=== PATIENT | female | born 1955 | race Caucasian/White ===

== ENCOUNTER 2018-03-03 08:18 | Observation (INO) ==
--- NOTE | 2018-03-03 08:32 | Emergency Department Note ---
Disposition Clinical Impression: Left leg weakness Disposition: Admitted As Inpatient Condition: Good General Adult HPI - General Chief complaint: ED Neuro Symptoms/Deficit Stated complaint: dizziness, LLE numbness Time Seen by Provider: 03/03/18 08:24 - History of Present Illness Pain Scale: 0 - Related Data Home Medications Medication Instructions Recorded Confirmed No Known Home Drugs 08/09/17 03/03/18 Allergies Allergy/AdvReac Type Severity Reaction Status Date / Time No Known Allergies Allergy Verified 03/03/18 09:28 Past Medical History - Social History Smoking Status: Former smoker Smokeless Tobacco Status: No Alcohol use: Reports: none Drug use: Reports: none Course Vital Signs Temperature 98 F 03/03/18 08:21 Pulse Rate 63 03/03/18 08:21 Respiratory Rate 16 03/03/18 08:21 Blood Pressure 157/90 03/03/18 08:21 O2 Sat by Pulse Oximetry 100 03/03/18 08:21 Temperature 97.9 F 03/03/18 10:29 Pulse Rate 58 03/03/18 10:29 Respiratory Rate 17 03/03/18 10:29 Blood Pressure 136/77 03/03/18 10:29 O2 Sat by Pulse Oximetry 98 03/03/18 10:29 Oxygen Delivery Oxygen Delivery Room Air Medical Decision Making - Lab Data Result diagrams: 03/03/18 08:29 03/03/18 08:29 Lab Results 03/03/18 03/03/18 03/03/18 Range/Units 08:29 08:29 08:29 WBC 6.9 (4.3-11.1) K/mcL RBC 4.53 (3.82-4.97) M/mcL Hgb 14.4 (11.5-15.4) g/dL Hct 43.8 (35.3-44.9) % MCV 96.7 (83.0-100.0) fL MCH 31.8 (28.0-33.3) pg MCHC 32.9 (31.6-35.5) g/dL RDW 13.2 (11.5-14.5) % Plt Count 259 (140-400) K/mcL MPV 8.8 L (9.4-12.4) fL Immature Gran % 0.3 (0-4) % Seg Neutrophils % 73.1 % Lymphocytes % 16.5 % Monocytes % 7.9 % Eosinophils % 1.2 % Basophils % 1.0 % Neutrophils # 5.1 (1.6-8.9) K/mcL Lymphocytes # 1.1 (0.6-4.6) K/mcL Monocytes # 0.6 (0.0-1.3) K/mcL Eosinophils # 0.1 (0.0-0.6) K/mcL Basophils # 0.1 (0.0-0.2) K/mcL PT 11.5 (9.4-12.1) Seconds INR 1.0 APTT 29.5 (26.0-36.0) Seconds Sodium 140 (136-145) mEq/L Potassium 3.5 (3.5-5.1) mEq/L Chloride 107 (98-107) mEq/L Carbon Dioxide 25 (23-29) mEq/L BUN 16 (8-23) mg/dL Creatinine 0.82 (0.60-1.20) mg/dL Est GFR ( Amer) > 60 (> 60) Est GFR (Non-Af Amer) > 60 (> 60) BUN/Creatinine Ratio 20 (6-26) Glucose 90 (70-105) mg/dL Calculated Osmolality 291 (280-300) Calcium 9.2 (8.6-10.3) mg/dL Troponin I < 0.03 (< 0.04) ng/mL Critical Care Time Critical Care Time: Yes Total Critical Care Time: 30 Attestation: The high probability of a clinically significant, sudden or life threatening deterioration of the [] system(s) required my full and direct attention, intervention and personal management. The aggregate critical care time was [] minutes. This time is in addition to time spent performing reported procedures but includes the following: [] Data Review and interpretation [] Patient assessment and monitoring of vital signs [] Documentation [] Medication orders and management Attestation Statement - Attestation Attestation: I examined this patient and my medical decision-making was reviewed with the Resident Physician. I agree with the documented findings, disposition and treatment plan as described except to the extent set forth below. [id number] time provided Patient arrives by private vehicle complaining of the abrupt onset of left lower extremity numbness, tingling, and heaviness with difficulty ambulating that started 2 hours and 30 minutes prior to arrival. She also feels dizzy. She denies speech or vision changes. No other focal weakness. She has a history of endometrial cancer with brain metastases and she underwent 10 rounds of chemotherapy one year ago. She states she recently had an MRI with improvement. She had similar symptoms previously related to brain lesions. The patient is alert and lucid and pleasant and in no apparent distress upon arrival. Stroke alert activated 09:10: CT head reported negative. NIH 1-2 for sensory and motor deficits LLE. Stroke alert consultation pursued
[2018-03-03 09:03] LABS: Basophils # 0.1 K/mcL (0.0-0.2); Eosinophils # 0.1 K/mcL (0.0-0.6); Eosinophils % 1.2 %; Hematocrit 43.8 % (35.3-44.9); Hemoglobin 14.4 g/dL (11.5-15.4); Immature Granulocytes % 0.3 % (0-4); Lymphocytes # 1.1 K/mcL (0.6-4.6); Lymphocytes % 16.5 %; Mean Corpuscular HGB Conc 32.9 g/dL (31.6-35.5); Mean Corpuscular Hemoglobin 31.8 pg (28.0-33.3); Mean Corpuscular Volume 96.7 fL (83.0-100.0); Mean Platelet Volume 8.8 fL (9.4-12.4); Monocytes # 0.6 K/mcL (0.0-1.3); Monocytes % 7.9 %; Neutrophils # 5.1 K/mcL (1.6-8.9); Platelet Count 259 K/mcL (140-400); Red Blood Count 4.53 M/mcL (3.82-4.97); Red Cell Distribution Width 13.2 % (11.5-14.5); Segmented Neutrophils % 73.1 %
--- NOTE | 2018-03-03 09:03 | Emergency Department Note ---
Disposition Clinical Impression: Left leg weakness Disposition: Admitted As Inpatient Condition: Good Forms: ED Satisfaction Letter Time of Disposition: 09:53 Neuro HPI - General Chief Complaint: ED Neuro Symptoms/Deficit Stated Complaint: dizziness, LLE numbness Time Seen by Provider: 03/03/18 08:24 Source: patient Mode of arrival: ambulatory Limitations: no limitations Nursing Notes Reviewed: Yes Vital Signs Reviewed: Yes - History of Present Illness HPI Narrative: 62-year-old female presents to the emergency department with left leg weakness. Patient states her last known normal was at 6:00 this morning. Patient does have history of brain lesions had an MRI done approximately 2-3 months ago which did not show any brain lesions. She did have and a endometrial cancer that metastasized into the brain she did undergo chemotherapy as well as radiation approximately 1-2 years ago. Patient is not having any other complaint this time. Just had the sudden onset of left lower leg weakness. Patient states this feels like the exact same thing that happened when they found out she had the 6 lesions in the brain. Patient does not have any pain at this time. - Related Data Home Medications: Home Medications Medication Instructions Recorded Confirmed No Known Home Drugs 08/09/17 11/21/17 Allergies/Adverse Reactions: Allergies Allergy/AdvReac Type Severity Reaction Status Date / Time No Known Allergies Allergy Verified 03/03/18 09:28 All systems ED: reviewed and negative except as stated. Review of Systems: As Per HPI Constitutional: Reports: as per HPI. Denies: fever, chills, weakness Eyes: Denies: eye pain, eye discharge, vision change ENT ED: Denies: ear pain, throat pain, dental pain, hearing loss, epistaxis, congestion, dysphagia Cardiovascular: Denies: chest pain, palpitations, dyspnea on exertion, edema, syncope Respiratory: Denies: cough, dyspnea, wheezes, hemoptysis, stridor Gastrointestinal: Denies: abdominal pain, nausea, vomiting, diarrhea, constipation, hematemesis, melena, hematochezia Genitourinary: Denies: dysuria, frequency, hematuria, discharge Musculoskeletal: Denies: back pain, neck pain, arthralgia, myalgia Integumentary: Denies: rash, abrasion, lesions Neurological: Reports: weakness. Denies: headache, numbness, paresthesias, confusion, abnormal gait, vertigo Psychiatric: Denies: anxiety, depression, suicidal thoughts, homicidal thoughts , auditory hallucinations, visual hallucinations Endocrine: Denies: fatigue Hematological/Lymphatic: Denies: easy bleeding, easy bruising Allergic/Immunologic: Denies: facial swelling, urticaria Past Medical History - Past Medical History Attestation: Yes The following information was validated with the patient. Source: patient Medical history: Reports: cancer - Social History Smoking Status: Former smoker Smokeless Tobacco Status: No Alcohol use: Reports: none Drug use: Reports: none Physical Exam - General Limitations: no limitations General appearance: alert - Head Head exam: atraumatic, normocephalic, normal inspection - Eye Eye exam: Present: normal appearance, PERRL, EOMI - ENT ENT exam: normal exam, normal oropharynx, mucous membranes moist - Neck Neck exam: Present: normal inspection, full ROM, trachea midline - Chest Chest inspection: Present: normal inspection, symmetric chest wall rise - Respiratory Respiratory exam: Present: normal lung sounds bilaterally - Cardiovascular Cardiovascular exam: Present: regular rate, normal rhythm, normal heart sounds - Abdominal Exam Abdominal exam: Present: soft, Non-Tender, normal bowel sounds. Absent: tenderness, distention, guarding, rebound, rigidity - Extremities Exam Extremities exam: Present: normal inspection, full ROM. Absent: tenderness, pedal edema - Back Exam Back exam: Present: normal inspection, full ROM. Absent: tenderness - Neurological Exam Neurological exam: Present: alert, oriented X3 - Expanded Neurological Exam Patient oriented to: Present: person, place, time Speech: Present: fluid speech Cranial nerves: EOM function (II, III, IV, ): Normal, facial sensation (V): Normal, facial palsy (VII): Normal, spinal accessory function (XI): Normal, tongue deviation (XII): Normal Cerebellar function: finger to nose: Normal, heel to peng: Normal Cerebellar function: normal gait Motor strength - LUE: 5/5 Motor strength - RUE: 5/5 Motor strength - LLE: 5/5 Motor strength - RLE: 5/5 Upper motor neuron exam: suad neglect: Absent bilaterally, pronator drift: Absent bilaterally Sensory exam upper extremity: light touch: Normal Sensory exam lower extremity: light touch: Normal Coma Scale Eye Opening: Spontaneous Coma Scale Motor Response: Obeys Commands Coma Scale Verbal Response: Oriented Coma Scale Total: 15 - Skin Skin exam: Present: warm, dry, intact, normal color Course Course Narrative: Stroke alert was called once patient came to the emergency department was having left leg weakness. We will do stat head CT. We will do normal workup including CBC, BMP , coags and await recommendations from [facility] neurology - Consultations Consultation #1: Spoke with the hospital's Dr. Baugh who agreed to admit the patient to their service. Patient admitted in stable condition Vital Signs Temperature 98 F 03/03/18 08:21 Pulse Rate 63 03/03/18 08:21 Respiratory Rate 16 03/03/18 08:21 Blood Pressure 157/90 03/03/18 08:21 O2 Sat by Pulse Oximetry 100 03/03/18 08:21 Temperature 98 F 03/03/18 08:30 Pulse Rate 64 03/03/18 09:04 Respiratory Rate 18 03/03/18 09:04 Blood Pressure 143/85 03/03/18 09:04 O2 Sat by Pulse Oximetry 100 03/03/18 09:04 Oxygen Delivery Oxygen Delivery Room Air Neuro Symptoms/Deficit - MDM Narrative Medical decision making narrative: 82-year-old female here with left leg weakness. Last known well was 6:00. Stroke alert was called. Patient had an NIH 1. At that time we sent patient to stat CT radiologist called back and said that there was no acute brain bleeding but he did look at the old MRI from one month ago and did notice the patient had 2 small brain lesions. He said there were not as profound as when she recently was diagnosed with brain cancer. [facility] neurology did get on the video and examined the patient did not recommend TPA as they said this probably secondary to patient's brain lesions. Due to this we will admit the patient for repeat MRI. Patient wants to stay here as her neurologist as well as oncologist are here. Patient is stable at this time. EKG had no acute findings. Patient be admitted in stable condition. - Medical Records Medical records reviewed: Yes I reviewed the patient's medical records. - Lab Data Lab results reviewed: Yes I reviewed the patient's lab results. Result diagrams: 03/03/18 08:29 03/03/18 08:29 Lab Results 03/03/18 03/03/18 03/03/18 Range/Units 08:29 08:29 08:29 WBC 6.9 (4.3-11.1) K/mcL RBC 4.53 (3.82-4.97) M/mcL Hgb 14.4 (11.5-15.4) g/dL Hct 43.8 (35.3-44.9) % MCV 96.7 (83.0-100.0) fL MCH 31.8 (28.0-33.3) pg MCHC 32.9 (31.6-35.5) g/dL RDW 13.2 (11.5-14.5) % Plt Count 259 (140-400) K/mcL MPV 8.8 L (9.4-12.4) fL Immature Gran % 0.3 (0-4) % Seg Neutrophils % 73.1 % Lymphocytes % 16.5 % Monocytes % 7.9 % Eosinophils % 1.2 % Basophils % 1.0 % Neutrophils # 5.1 (1.6-8.9) K/mcL Lymphocytes # 1.1 (0.6-4.6) K/mcL Monocytes # 0.6 (0.0-1.3) K/mcL Eosinophils # 0.1 (0.0-0.6) K/mcL Basophils # 0.1 (0.0-0.2) K/mcL PT 11.5 (9.4-12.1) Seconds INR 1.0 APTT 29.5 (26.0-36.0) Seconds Sodium 140 (136-145) mEq/L Potassium 3.5 (3.5-5.1) mEq/L Chloride 107 (98-107) mEq/L Carbon Dioxide 25 (23-29) mEq/L BUN 16 (8-23) mg/dL Creatinine 0.82 (0.60-1.20) mg/dL Est GFR ( Amer) > 60 (> 60) Est GFR (Non-Af Amer) > 60 (> 60) BUN/Creatinine Ratio 20 (6-26) Glucose 90 (70-105) mg/dL Calculated Osmolality 291 (280-300) Calcium 9.2 (8.6-10.3) mg/dL Troponin I < 0.03 (< 0.04) ng/mL - Radiology Data Radiology results reviewed: Yes I reviewed the patient's radiology results. - EKG Data EKG attestation: Yes I reviewed and interpreted this EKG. EKG results narrative: EKG done at 0850 review myself and the attending shows sinus rhythm at a rate of 60, AR interval 148, QRS 104, QTc 441. There is no acute ST changes no acute T-wave changes no signs of ischemia. No signs of heart block, hypertrophy , heart strain. No WPW/Brugada/HOCM. There is no old EKG to compare with. NIH Stroke Scale - Level of Consciousness LOC: Alert - LOC Questions LOC Questions: Answers both correctly - LOC Commands LOC Commands: Performs both correctly - Best Gaze Best Gaze: Normal - Visual Visual: No visual loss - Facial Palsy Facial Palsy: Normal - Motor Arms Motor Arm-Left: No drift for 10 seconds Motor Arm-Right: No drift for 10 seconds - Motor Legs Motor Leg-Left: Drift, does NOT hit bed Motor Leg-Right: No drift for 5 seconds - Limb Ataxia Limb Ataxia: Absent of affected limb too weak to perform exam - Sensory Sensory: Normal - Best Language Best Language: No aphasia - Dysarthria Dysarthria: Normal - Extinction and Inattention Extinction and Inattention: Normal - NIHSS Total Score NIHSS Total Score: 1 TPA Checklist - LKW: 3-4.5 hrs Add. Warnings/Precautions Patient/family understanding: The patient/family members have been counseled and understood the risk, benefit , and alternatives of treatment.
[2018-03-03 09:09] LABS: Prothrombin Time 11.5 Seconds (9.4-12.1)
[2018-03-03 09:11] LABS: Activated Partial Thrombo Time 29.5 Seconds (26.0-36.0)
[2018-03-03 09:25] LABS: BUN/Creatinine Ratio 20 (6-26); Blood Urea Nitrogen 16 mg/dL (8-23); Calcium 9.2 mg/dL (8.6-10.3); Carbon Dioxide 25 mEq/L (23-29); Chloride 107 mEq/L (98-107); Glucose 90 mg/dL (70-105); Osmolality,Calculated 291 (280-300); Potassium 3.5 mEq/L (3.5-5.1); Sodium 140 mEq/L (136-145); Troponin I < 0.03 ng/mL (< 0.04); eGFR For Non-African Americans > 60 (> 60)
[2018-03-03] MEDS ORDERED: Naloxone 0.4 MG/ML INJ IVP PRN (10:10)
[2018-03-03] MEDS ORDERED: Gadolinium Contrast Agent (WT Based) IV PRN (11:06)
[2018-03-03] MEDS: 0.9 % Sodium Chloride 1,000 ML IVC SCH (12:11)
--- NOTE | 2018-03-03 12:36 | Internal Med History&Physical ---
Date of Encounter: 03/03/18 Time of Encounter: 12:16 Internal Medicine - H&P: HPI Chief complaint: Enters from home to ED with CC of left leg heaviness, weakness , and throb Admitted From: Home Plans for Post Hospital Care: Home History of present illness: Ms. Chirinos is a 62 year old female she was seen in ED for an abrupt onset neurological deficient with weakness of left lower extremity, and dizziness. Associated s/s of difficulty ambulating, for 2 hours prior to being seen in ED. At that time she denied any other neurological symptoms. She reports that she has expierenced similar s/s when she was diagnosed with Endometrial cancer with METS to the brain 2017 HX of Endometrial cancer with mets to the lung, and brain. Positive hx of right upper lobectomy d/t endometrial cancer METS. She completed 10 rounds of Chemotherapy one year ago. States she has completed all of her treatments at this time. Takes no home medications. Hx of Primary colon cancer with bowel resection as her primary treatment for the cancer. Reports this was diagnosised in 2016. Reports strong familiar hx of both endometrial cancer, brain cancer and colon cancer all from her Maternal side of the family. Reports that she had 5 sisters whom have of some sort of cancer in the past 1 year. States her mother pased from endometrial and brain cancer . CT of head completed in ED shows "no acute intracranial hemorrhage, mass effect or midline shift. No abnormal extra-axial fluid collection. The talbert-white differentiation is maintained without evidence of an acute infarct. There is prominence of the ventricles and sulci due to global parenchymal volume loss. There are nonspecific areas of hypoattenuation within the periventricular and subcortical white matter, which likely represent chronic microvascular ischemic change.Recommends further work up with MRI. " Today Ms. Chirinos continues to c/o left leg weakness, with worsening with ambulation. Reports that she can feel "her heart beat in it", with associated heaviness. Reports when she stands in a clear area, she has feelings of 'Off balance" and a need "to hold on". Reports that she feels more safe in a room where there is furniture to hold on to. Spoke with Dr. Vallecillo Oncologist whom wishes to start on Decadron 4 mg po q6h prn . Consults with Dr. Gomez Neurology has been completed. MRI of brain, 2 D echo , and Carotid Doppler have been ordered and pending at this time . Past Med Surg Social Fam HX - Past Medical History Source: patient Medical history: cancer Additional medical history: Endometrial, colon, brain, lung cancer Psychiatric history: no psych history - Past Surgical History Surgical History: appendectomy, hysterectomy Additional surgical history: Tonsilectomy. 2/3 small and large instestines removed due to cancer. Right upper lobectomy - Social History Smoking Status: Former smoker Smokeless Tobacco Status: No Alcohol use: none Drug use: none - Family History Grandmother Living Status: Age at : 80 Cause of : Cancer Hx Family Cancer: Yes (Ovarian, Colon, Mets) Mother Living Status: Age at : 51 Cause of : Cancer Hx Family Cancer: Yes Internal Medicine - H&P: Meds No Known Home Drugs 08/09/17 [History] 3 Allergy/AdvReac Type Severity Reaction Status Date / Time No Known Allergies Allergy Verified 03/03/18 09:28 All Systems PM: A 10-system review of systems was performed and is negative for pertinent findings except as documented above in the HPI. - Constitutional Constitutional: no chills, no fever(s), no night sweats - EENT Eyes: no change in vision, no discharge, no pain, no photophobia Ears: no ear discharge, no ear pain, no tinnitus Nose, mouth and throat: no dysphagia, no nasal discharge, no neck pain, no sore throat - Cardiovascular Cardiovascular ROS IM: no chest pain, no diaphoresis, no dyspnea, no lightheadedness, no palpitations, no syncope - Respiratory Respiratory: no cough, no dyspnea, no wheezing, no excessive phlegm production - Gastrointestinal Gastrointestinal: no abdominal pain, no diarrhea, no hematemesis, no hematochezia, no melena, no nausea, no vomiting - Genitourinary Genitourinary: no change in urinary stream, no dysuria, no flank pain, no hematuria - Musculoskeletal Musculoskeletal ROS IM: muscle weakness Additional comments: left lower extremity - Integumentary Integumentary IM: no rash, no unusual bruising - Neurological Neurological ROS: dizziness, focal weakness, weakness Additional comments: left lower leg weakness, throbbing sensation, sensation of heaviness - Constitutional Vitals: Temp Pulse Resp BP Pulse Ox 97.9 F 58 17 136/77 98 03/03/18 10:29 09/03/18 10:29 03/03/18 10:29 03/03/18 10:29 03/03/18 10:29 General appearance: Present: A&O X 3, pleasant, answers questions appropriately Exam: Patient is resting comfortably in bed accompanied by her in no acute distress. Denies chest pain, headache, palpations, shortness of breath. Continues with CC of heaviness and "throbbing " of left lower extremity - Head Head exam: Present: atraumatic, normal inspection - Eye Eye exam: Present: EOMI, PERRL, conjuntiva pink, sclera anicteric Pupils: Present: PERRL - ENT ENT exam: Present: mucous membranes moist, normal exam - Neck Neck exam general surgery: Present: supple, trachea midline. Absent: lymphadenopathy - Respiratory Respiratory exam: Present: CTAB Additional comments: no breath sounds right upper lobe d/t lobectomy . Well healed scar right posterior scapula. - Cardiovascular Cardiovascular exam: Present: RRR, +S1, +S2. Absent: diastolic murmur, gallop, rubs, systolic murmur - GI/Abdominal GI/Abdominal exam: Present: normal bowel sounds, soft, no peritoneal signs. Absent: distended, tenderness - Extremities Exam Extremities exam: Present: full ROM, normal capillary refill, normal inspection , radial pulses palpable and symmetrical - Back Exam Back exam: Present: full ROM - Neurological Exam Neurological exam: Present: alert, CN II-XII intact, normal gait, oriented X3, reflexes normal, no focal deficits, strengths equal and symetr throughout - Skin Additional comments: discoloration of left lower extremity when compared to right. Tanning of the right lower extremity. Internal Med - H&P Results - Labs CBC & Chem 7: 03/03/18 08:29 03/03/18 08:29 - Time Spent With Patient Total time spent is greater than 50% in coordination of care (as documented) at patient's floor/unit and/or counseling patient:
--- NOTE | 2018-03-03 15:41 | Neurology - Consult Note ---
Date of Encounter: 03/03/18 Time of Encounter: 15:37 Assessment and Plan (1) Left leg weakness Current Visit: Yes Status: Acute At this time show his neurologic examination is completely normal. She does have some subjective feeling of heaviness of the left leg. Given that the more recent MRI scan of the brain completed on 01/30/2018 revealed no evidence of new metastatic lesions, I am doubtful that we are dealing with such. However we will go ahead and obtain an MRI scan of the brain with diffusion images to rule out evidence of cerebrovascular disease. However there is diffuse white matter change consistent with what is consistent with having received whole brain radiation therapy previously. I will also obtain carotid Doppler study and echocardiogram. History of Present Illness HPI: The chart was reviewed, the patient was seen and examined. Ms. Chirinos is a 62 year old female seen at the request of the hospitalist secondary to left leg paresthesias and "heaviness". 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 She states that about a year or so ago she developed similar symptoms in the left leg. It was then further workup found that she had metastatic lesions to the brain. Ultimately she did have 10 treatments of whole brain radiation therapy. She is also had chemotherapy. . Today she felt that her left leg was tingling numb and heavy. The numbness has improved however heaviness is still present. She denies any pain of the left leg or back. She denies any involvement of the left arm or left face. She denies any history of hypertension, diabetes mellitus or hyperlipidemia. I did review the previous MRI scan of the brain which was completed on 01/30/2018 , it shows were several of the previously existing metastatic lesions were no longer there. Past Med Surg Social Fam HX - Past Medical History Medical history: cancer Additional medical history: Endometrial, colon, brain, lung cancer Psychiatric history: no psych history - Past Surgical History Surgical History: appendectomy, hysterectomy Additional surgical history: Tonsilectomy. 2/3 small and large instestines removed due to cancer. Right upper lobectomy - Social History Smoking Status: Former smoker Smokeless Tobacco Status: No Alcohol use: none Drug use: none - Family History Grandmother Living Status: Age at : 80 Cause of : Cancer Hx Family Cancer: Yes (Ovarian, Colon, Mets) Mother Living Status: Age at : 51 Cause of : Cancer Hx Family Cancer: Yes Medications and Allergies No Known Home Drugs 08/09/17 [History] 3 Allergy/AdvReac Type Severity Reaction Status Date / Time No Known Allergies Allergy Verified 03/03/18 09:28 All Systems: The remainder of the systems were reviewed and are negative Review of Systems: The balance of the systems review is negative. Physical Examination - Vital Signs Vital Signs: Initial Vital Signs Temp Pulse Resp BP Pulse Ox 98 F 63 16 157/90 100 03/03/18 08:21 03/03/18 08:21 03/03/18 08:21 03/03/18 08:21 03/03/18 08:21 - Neurologic Detailed motor examination: full strength in all major muscle groups Motor examination - right side: 5/5: deltoids, biceps, triceps, wrist flexion, wrist extension, rail filler, hip flexors, tibialis Anterior, quadriceps, toe extension (EHL), plantarflexion Motor examination - left side: 5/5: deltoids, biceps, triceps, wrist flexion, wrist extension, hip flexors, rail filler, quadriceps, tibialis Anterior, toe extension (EHL), plantarflexion Detailed sensory examination: intact Reflex and gait examination: intact (Deep tendon reflexes are 2/4 symmetrically of the upper and lower extremities.) Mental Status Examination: awake, alert, oriented to person, oriented to place, oriented to time, follows commands appropriately, answers questions appropriately, no agnosia, no aphasia, no aproxia Cranial nerve examination: PERRL, EOMI, visual carmona intact, corneal reflexes brisk symmetrically, sensory to face intact, mastication intact, no facial asymmetry is present, no dysarthria, hearing is intact symmetrically, soft palate elevates bilaterally upon phonation, gag reflex intact, flexes SCM and trapezius muscles symmetrically with full power, tongue protrudes midline, no atrophy or facial fasiculations present Cerebellar examination: no dysmetria, performs finger to nose and heel to peng symmetrically without ataxia, no gait ataxia, no truncal ataxia, no difficulty with rapid alternating movements Results - Laboratory Findings CBC and BMP: 03/03/18 08:29 03/03/18 08:29 Abnormal lab findings: Abnormal lab results MPV 8.8 fL (9.4-12.4) L 03/03/18 08:29 Consult Discharge Plan - Plan Referrals: NONE,PCP [Primary Care Provider] -
[2018-03-03] MEDS: Aspirin 81 MG TAB.CHEW PO SCH (18:46)
[2018-03-04] MEDS: 0.9 % Sodium Chloride 1,000 ML IVC SCH ×2 (00:47→21:15)
[2018-03-04 05:36] LABS: Basophils # 0.1 K/mcL (0.0-0.2); Basophils % 1.2 %; Eosinophils # 0.1 K/mcL (0.0-0.6); Eosinophils % 2.7 %; Hematocrit 37.1 % (35.3-44.9); Immature Granulocytes % 0.2 % (0-4); Lymphocytes # 1.1 K/mcL (0.6-4.6); Lymphocytes % 26.3 %; Mean Corpuscular HGB Conc 32.9 g/dL (31.6-35.5); Mean Corpuscular Hemoglobin 31.6 pg (28.0-33.3); Mean Corpuscular Volume 96.1 fL (83.0-100.0); Mean Platelet Volume 8.8 fL (9.4-12.4); Monocytes # 0.5 K/mcL (0.0-1.3); Neutrophils # 2.3 K/mcL (1.6-8.9); Platelet Count 218 K/mcL (140-400); Red Blood Count 3.86 M/mcL (3.82-4.97); Red Cell Distribution Width 13.2 % (11.5-14.5); Segmented Neutrophils % 56.6 %
[2018-03-04 05:37] LABS: Hemoglobin 12.2 g/dL (11.5-15.4)
[2018-03-04 05:57] LABS: Alanine Aminotransferase 10 Units/L (7-52); Albumin 3.4 g/dL (3.5-5.7); Albumin/Globulin Ratio 1.8 (1.1-2.2); Alkaline Phosphatase 57 Units/L (34-104); Aspartate Amino Transferase 12 Units/L (13-39); BUN/Creatinine Ratio 23 (6-26); Bilirubin,Total 0.5 mg/dL (0.3-1.0); Blood Urea Nitrogen 16 mg/dL (8-23); Calcium 8.5 mg/dL (8.6-10.3); Carbon Dioxide 24 mEq/L (23-29); Chloride 111 mEq/L (98-107); Globulin 1.9 g/dL (2.4-3.5); Glucose 88 mg/dL (70-105); Osmolality,Calculated 295 (280-300); Potassium 3.5 mEq/L (3.5-5.1); Sodium 142 mEq/L (136-145); Total Protein 5.3 g/dL (6.4-8.9); eGFR For Non-African Americans > 60 (> 60)
[2018-03-04] MEDS: Aspirin 81 MG TAB.CHEW PO SCH (08:52)
--- NOTE | 2018-03-04 14:55 | Oncology Inp Consult Note ---
<Sterling Reyes - Last Filed: 03/04/18 18:19> Date of Encounter: 03/04/18 Time of Encounter: 14:54 Assessment and Plan (1) Left leg weakness Status: Acute Assessment and plan: Patient has waxing and waning weakness and heaviness in her left leg of uncertain etiology. Doubtful that the small lesion noted on MRI is causing her symptoms. Symptoms can also be related to neuropathy as a late effect of her chemoradiation. We will have her follow-up as an outpatient with her medical oncologist and radiation oncologist. She is stable for discharge from an oncologic standpoint. We will sign off, please call with any questions. (2) Endometrial cancer Status: Acute - Data of Consult Patient: known to practice within the last 3 years Consult date: 03/04/18 Requesting Physician: Louise Bray MD Primary Care Provider: PCP NONE - Consult Narrative Reason for consult: L leg weakness History of present illness: Ms. Chirinos is a 62 year old female with history of endometrial cancer with metastatic disease to the brain who presents with left leg weakness. Patient states her symptoms began yesterday morning when she woke up and attempted to walk and had heaviness in her left leg as well as numbness and tingling. She denies any pain with this event. She states this was similar to the feeling she had several years ago when she was diagnosed with brain metastasis. She states that recently she has been doing a lot of motorcycle riding and has been wearing a lymphedema compression stocking on her left leg that she feels is too small for her and extremely tight. At the time of exam the patient reports that her symptoms have nearly resolved completely. She does report that her leg feels somewhat heavy but otherwise her symptoms resolved. She denies any upper extremity weakness, numbness, tingling, facial numbness, tingling, slurred speech, vision changes, headache, syncopal episode. Past Med Surg Social Fam HX - Past Medical History Medical history: cancer Additional medical history: Endometrial, colon, brain, lung cancer Psychiatric history: no psych history - Past Surgical History Surgical History: appendectomy, hysterectomy Additional surgical history: Tonsilectomy. 2/3 small and large instestines removed due to cancer. Right upper lobectomy - Social History Smoking Status: Former smoker Smokeless Tobacco Status: No Alcohol use: none Drug use: none - Family History Grandmother Living Status: Age at : 80 Cause of : Cancer Hx Family Cancer: Yes (Ovarian, Colon, Mets) Mother Living Status: Age at : 51 Cause of : Cancer Hx Family Cancer: Yes Medications and Allergies No Known Home Drugs 08/09/17 [History] 3 Allergy/AdvReac Type Severity Reaction Status Date / Time No Known Allergies Allergy Verified 03/03/18 09:28 Constitutional: Absent: chills, fever(s) Nose, mouth and throat: Absent: headache(s), sore throat Cardiovascular: Present: edema. Absent: chest pain Respiratory: Absent: cough, dyspnea Gastrointestinal: Absent: diarrhea, nausea, vomiting Genitourinary: Absent: dysuria, hematuria Musculoskeletal: Present: muscle weakness, numbness, tingling Integumentary: Absent: new lesions Neurological: Present: focal weakness, numbness, tingling. Absent: confusion, dizziness, headache(s), syncope Hematologic/Lymphatic: Absent: easy bleeding, easy bruising Oncology - Exam - Constitutional Vitals: Temp Pulse Resp BP Pulse Ox 98.9 F 87 16 118/74 98 03/04/18 11:46 03/04/18 11:46 03/04/18 11:46 03/04/18 11:46 03/04/18 11:46 General appearance: cooperative, no acute distress - Head Head exam: Present: atraumatic, normal inspection, normocephalic - Eye Eye exam: Present: EOMI, PERRL, sclera anicteric - ENT ENT exam: Present: mucous membranes moist - Respiratory Respiratory exam: Present: CTAB. Absent: rales, rhonchi, wheezes - Cardiovascular Cardiovascular exam: Present: RRR. Absent: diastolic murmur, gallop, systolic murmur - GI/Abdominal GI/Abdominal exam: Present: normal bowel sounds, soft. Absent: tenderness - Extremities Exam Extremities exam: Absent: calf tenderness, pedal edema - Neurological Exam Neurological exam: Present: alert, CN II-XII intact, oriented X3, no focal deficits, strengths equal and symetr throughout. Absent: motor sensory deficit , pronater drift, facial droop, speech deficit - Skin Skin exam: Present: dry, intact, warm Oncology - Results Labs: 3 03/04/18 03/04/18 05:19 05:19 WBC 4.1 L RBC 3.86 Hgb 12.2 D Hct 37.1 MCV 96.1 MCH 31.6 MCHC 32.9 RDW 13.2 Plt Count 218 MPV 8.8 L Immature Gran % 0.2 Seg Neutrophils % 56.6 Lymphocytes % 26.3 Monocytes % 13.0 Eosinophils % 2.7 Basophils % 1.2 Neutrophils # 2.3 Lymphocytes # 1.1 Monocytes # 0.5 Eosinophils # 0.1 Basophils # 0.1 Sodium 142 Potassium 3.5 Chloride 111 H Carbon Dioxide 24 BUN 16 Creatinine 0.70 Est GFR ( Amer) > 60 Est GFR (Non-Af Amer) > 60 BUN/Creatinine Ratio 23 Glucose 88 Calculated Osmolality 295 Calcium 8.5 L Total Bilirubin 0.5 AST 12 L ALT 10 Alkaline Phosphatase 57 Serum Total Protein 5.3 L Albumin 3.4 L Globulin 1.9 L Albumin/Globulin Ratio 1.8 Consult Discharge Plan - Plan Referrals: NONE,PCP [Primary Care Provider] - <Robert Vallecillo - Last Filed: 03/04/18 22:41> Date of Encounter: 03/04/18 - Data of Consult Requesting Physician: Louise Bray MD Primary Care Provider: PCP NONE - Consult Narrative History of present illness: Ms. Chirinos is a 62 year old female Oncology - Exam - Constitutional Vitals: Temp Pulse Resp BP Pulse Ox 98.6 F 64 16 133/78 100 03/04/18 19:18 03/04/18 19:18 03/04/18 19:18 03/04/18 19:18 03/04/18 19:18 Oncology - Results Labs: 3 03/04/18 03/04/18 05:19 05:19 WBC 4.1 L RBC 3.86 Hgb 12.2 D Hct 37.1 MCV 96.1 MCH 31.6 MCHC 32.9 RDW 13.2 Plt Count 218 MPV 8.8 L Immature Gran % 0.2 Seg Neutrophils % 56.6 Lymphocytes % 26.3 Monocytes % 13.0 Eosinophils % 2.7 Basophils % 1.2 Neutrophils # 2.3 Lymphocytes # 1.1 Monocytes # 0.5 Eosinophils # 0.1 Basophils # 0.1 Sodium 142 Potassium 3.5 Chloride 111 H Carbon Dioxide 24 BUN 16 Creatinine 0.70 Est GFR ( Amer) > 60 Est GFR (Non-Af Amer) > 60 BUN/Creatinine Ratio 23 Glucose 88 Calculated Osmolality 295 Calcium 8.5 L Total Bilirubin 0.5 AST 12 L ALT 10 Alkaline Phosphatase 57 Serum Total Protein 5.3 L Albumin 3.4 L Globulin 1.9 L Albumin/Globulin Ratio 1.8 - Attending Attestation I have seen and examined Ms. Chirinos and agree with the resident's assessment. 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 She completed XRT to brain and MRI 01/30/18 showed minimal disease. Presented with left leg "heaviness" and weakness. Symptoms resolved by our visit today. Repeat MR with possible increase in posterior right frontoparietal region. Given small size of lesion and minimal change, do not believe this to be cause of symptoms. Will schedule f/u with Dr. Berumen in Rad/Onc. May be d/c from our perspective. We will sign off. Please call with questions. Inpatient Charges Provider: Dr. Bennett Vallecillo Consult Charges: [id number]
--- NOTE | 2018-03-04 16:23 | Internal Med Progress Note ---
Hospitalist Progress Note - Encounter Date of Encounter: 03/04/18 Time of Encounter: 16:07 - Subjective Interval History: Here for left lower extremity numbness, tingling and weakness. Seen and examined at bedside, reports that her symptoms almost completely resolved continued to have mild tenderness to left lower extremity. Denies any other neurological symptoms. - Exam Vitals: Temp Pulse Resp BP Pulse Ox 97.8 F 70 16 138/79 98 03/04/18 15:39 03/04/18 15:39 03/04/18 15:39 03/04/18 15:39 03/04/18 15:39 Exam: PHYSICAL EXAMINATION: GENERAL: The patient is a well-developed, well-nourished male in no apparent distress. He is alert and oriented x3. HEENT: Head is normocephalic and atraumatic. Extraocular muscles are intact. Pupils are equal, round, and reactive to light and accommodation. NECK: Supple. No carotid bruits. No lymphadenopathy or thyromegaly. LUNGS: Clear to auscultation. HEART: Regular rate and rhythm without murmur. ABDOMEN: Soft, nontender, and nondistended. Positive bowel sounds. No hepatosplenomegaly was noted. EXTREMITIES: Without any cyanosis, clubbing, rash, lesions or edema. NEUROLOGIC: Cranial nerves II through XII are grossly intact with the exception of some mild left lower extremity weakness when compared to the right. SKIN: No ulceration or induration present. - Assessment and Plan (1) Left leg weakness Current Visit: Yes Status: Acute Assessment and Plan: persists but is improving, otherwise neuro exam is nonfocal. Continuous PT/OT Oncology following Neurology follow Consider discharge in the morning if patient continuing to improve Continue DVT prophylaxis and aspirin (2) Endometrial cancer Current Visit: Yes Status: Acute Assessment and Plan: per hx follows with [facility]; consult oncology (3) Lesion of brain Current Visit: Yes Status: Acute Assessment and Plan: There is been slight interval increase in size in the enhancing lesion involving the right posterior frontal/parietal lobe, which now measures 6 mm (previously 3 mm). Minimal surrounding T2 hyperintensity. 2. No significant mass effect or midline shift. 3. No new enhancing lesion identified. 4. No acute territorial infarct. 5. T2 hyperintensity is seen in the periventricular and subcortical white matter, which may represent a combination of chronic microvascular ischemic as well as posttreatment changes. Unclear whether this lesion is contributing to patient's presentation however, given location of lesion highly likely. Continues to endorse left lower extremity weakness/heaviness reports that it is improving Neurology following consultation-recommendations for follow-up with radiation oncology Oncology following in consultation-follow up outpatient DVT Prophylaxis: Lovenox - Time Spent with Patient Total time spent is greater than 50% in coordination of care (as documented) at patient's floor/unit and/or counseling patient: less than 15 minutes Plan of Care Discussed with: patient Internal Medicine: Result - Labs CBC & Chem 7: 03/04/18 05:19 03/04/18 05:19 Labs: Short CBC 03/04/18 Range/Units 05:19 WBC 4.1 L (4.3-11.1) K/mcL Hgb 12.2 D (11.5-15.4) g/dL Hct 37.1 (35.3-44.9) % Plt Count 218 (140-400) K/mcL Neutrophils # 2.3 (1.6-8.9) K/mcL BMP 03/04/18 05:19 Sodium 142 Potassium 3.5 Chloride 111 H Carbon Dioxide 24 BUN 16 Creatinine 0.70 Glucose 88 Calcium 8.5 L Liver Function 03/04/18 Range/Units 05:19 Total Bilirubin 0.5 (0.3-1.0) mg/dL AST 12 L (13-39) Units/L ALT 10 (7-52) Units/L Alkaline Phosphatase 57 (34-104) Units/L Albumin 3.4 L (3.5-5.7) g/dL - ABG Interpretation ABG results: PT/INR, D-dimer PT 11.5 Seconds (9.4-12.1) 03/03/18 08:29 - Impressions Impressions Brain MRI 03/03/18 11:06 IMPRESSION: 1. There is been slight interval increase in size in the enhancing lesion involving the right posterior frontal/parietal lobe, which now measures 6 mm (previously 3 mm). Minimal surrounding T2 hyperintensity. 2. No significant mass effect or midline shift. 3. No new enhancing lesion identified. 4. No acute territorial infarct. 5. T2 hyperintensity is seen in the periventricular and subcortical white matter, which may represent a combination of chronic microvascular ischemic as well as posttreatment changes. D/ / Leighton Maynard MD / Leighton Maynard MD Interpreting Provider: Leighton Maynard MD Consult Discharge Plan - Plan Referrals: NONE,PCP [Primary Care Provider] -
--- NOTE | 2018-03-04 18:13 | Neurology Progress Note ---
Date of Encounter: 03/04/18 Time of Encounter: 18:11 Assessment and Plan (1) Left leg weakness Current Visit: Yes Status: Acute This patient has endometrial cancer with metastatic lesions to the brain. It is very likely that perhaps the ring-enhancing lesion in the right frontal parietal lobe region that in the sensory changes in her left leg acutely. Certainly is in the right region to produce such an effect. However today she feels back to her baseline. It seems somewhat disturbing that the lesion however has been effective garbled in size over the last month. However she will follow up with hematology oncology after discharge. Ultimately she should also see radiation oncology perhaps to consider localized radiation therapy targeting the specific lesion. Carotid duplex Doppler study was essentially normal, echocardiogram was normal as well. Otherwise from a neurologic perspective she is stable may discharge her at your discretion. Subjective Interval history: The chart was reviewed, the patient was seen and examined. I did review the repeat MRI scan of the brain which was completed today with contrast. The study is abnormal and reveals a small ring-enhancing lesion in the right frontal parietal lobe junction. The lesion is measured at 6 mm. Just 1 month ago it was measured at 3 mm. Patient however clinically feels improved and back to her baseline. Apparently she was seen by oncology earlier today we discussed the plan with her. However at this point she is neurologically stable. Objective - Constitutional Vitals: Temp Pulse Resp BP Pulse Ox 98.3 F 69 17 162/81 98 03/04/18 15:59 03/04/18 15:59 03/04/18 15:59 03/04/18 15:59 03/04/18 15:59 - Neurological Exam Motor Examination: Present: full strength in all major muscle groups Motor examination - right side: 5/5: deltoids, biceps, triceps, book packer, hip flexors, tibialis Anterior, quadriceps, toe extension (EHL), plantarflexion Motor examination - left side: 5/5: deltoids, biceps, triceps, hip flexors, book packer , quadriceps, tibialis Anterior, toe extension (EHL), plantarflexion Sensation intact: Present: intact Reflex and gait examination: intact (Deep tendon reflexes are 2/4 symmetrically of the upper and lower extremities.) Mental Status Examination: Present: awake, alert, oriented to person, oriented to place, oriented to time, follows commands appropriately, answers questions appropriately, no agnosia, no aphasia, no aproxia Cranial nerve examination: Present: PERRL, EOMI, visual carmona intact, corneal reflexes brisk symmetrically, sensory to face intact, mastication intact, no facial asymmetry is present, no dysarthria, hearing is intact symmetrically, soft palate elevates bilaterally upon phonation, gag reflex intact, flexes SCM and trapezius muscles symmetrically with full power, tongue protrudes midline, no atrophy or facial fasiculations present Cerebellar examination: Present: no dysmetria, performs finger to nose and heel to peng symmetrically without ataxia, no gait ataxia, no truncal ataxia, no difficulty with rapid alternating movements Results - Laboratory Findings CBC and BMP: 03/04/18 05:19 03/04/18 05:19 Abnormal lab findings: Abnormal lab results WBC 4.1 K/mcL (4.3-11.1) L 03/04/18 05:19 MPV 8.8 fL (9.4-12.4) L 03/04/18 05:19 Chloride 111 mEq/L (98-107) H 03/04/18 05:19 Calcium 8.5 mg/dL (8.6-10.3) L 03/04/18 05:19 AST 12 Units/L (13-39) L 03/04/18 05:19 Serum Total Protein 5.3 g/dL (6.4-8.9) L 03/04/18 05:19 Albumin 3.4 g/dL (3.5-5.7) L 03/04/18 05:19 Globulin 1.9 g/dL (2.4-3.5) L 03/04/18 05:19 Consult Discharge Plan - Plan Referrals: NONE,PCP [Primary Care Provider] -
[2018-03-05] MEDS ORDERED: *HR* Enoxaparin 40 MG/0.4 ML SYRINGE SQ SCH (06:00)
[2018-03-05 08:24] VITALS: BP 122/78
--- NOTE | 2018-03-05 08:44 | Discharge Summary ---
- NOTES TO OUTPATIENT PROVIDER Notes to Outpatient Provider: Increase in size of intracranial lesion from 3 mm to 6 mm. Prior history of cancer with metastasis to lungs and brain. Patient instructed to follow-up with hematology oncology within 1 week of discharge. Additionally needs to follow with rad/onc. Please ensure f/u Date of Encounter: 03/05/18 Time of Encounter: 08:42 - Discharge Diagnosis (1) Left leg weakness Priority: Primary Status: Resolved (2) Endometrial cancer Priority: Secondary Status: Chronic (3) Lesion of brain Priority: Secondary Status: Acute Assessment and Plan: increased in size from 3mm to 6mm from 02/15 to 03/03/18 imaging f/u with hem/onc and rad/onc Hospital course: Ms. Chirinos is a 62 year old female presented with waxing and waning weakness/ heaviness in her left leg, etiology unclear. Prior history of endometrial cancer with metastasis to lungs and brain. Has had prior chemoradiation treatment. Follows with [facility]. Imaging in January 2018 reveals a 3 mm lesion in the brain, repeat imaging of 03/18 reveals an increase in size from 3 mm to 6 mm. Neurology following throughout stay, oncology has seen throughout stay as well. I believe that this could be contributing to her left lower extremity weakness/heaviness. This is the same presentation he had last time she was diagnosed with brain cancer. She has been instructed to follow-up with hematology oncology and radiation oncologist upon discharge. Uneventful hospital course, weakness and heaviness has subsided. Instructed to follow-up with PCP within one week at NH. Discharge discussed with: patient, nurse - Time Spent with Patient Total time spent providing and/or coordinating discharge services: Less than 30 minutes - Discharge Medications Home Medications: No Known Home Drugs 08/09/17 [History] Allergies/Adverse Reactions: 3 Allergy/AdvReac Type Severity Reaction Status Date / Time No Known Allergies Allergy Verified 03/03/18 09:28 Date of admission: 03/03/18 09:54 Primary care physician: Leah Centeno CNP Consults: 03/03/18 11:12 Consult to Neurology [CONS] Routine Consulting Provider: Neurology [facility] Reason for Consult: left lower leg weakness Time Notified: 11:14 Call Completed: Yes Consult to Oncology Hematology [CONS] Routine Consulting Provider: Robert Vallecillo Reason for Consult: left leg weakness Time Notified: 11:19 Call Completed: Yes Discharging clinician: Chance Posadas Anticipated date of discharge: 03/05/18 - Constitutional Vitals: Temp Pulse Resp BP Pulse Ox 98.5 F 60 18 122/78 98 03/05/18 08:21 03/05/18 08:21 03/05/18 08:21 03/05/18 08:21 03/05/18 08:21 General appearance: Present: A&O X 3, pleasant, answers questions appropriately Exam: PHYSICAL EXAMINATION: GENERAL: The patient is a well-developed, well-nourished male in no apparent distress. He is alert and oriented x3. HEENT: Head is normocephalic and atraumatic. Extraocular muscles are intact. Pupils are equal, round, and reactive to light and accommodation. NECK: Supple. No carotid bruits. No lymphadenopathy or thyromegaly. LUNGS: Clear to auscultation. HEART: Regular rate and rhythm without murmur. ABDOMEN: Soft, nontender, and nondistended. Positive bowel sounds. No hepatosplenomegaly was noted. EXTREMITIES: Without any cyanosis, clubbing, rash, lesions or edema. NEUROLOGIC: Cranial nerves II through XII are grossly intact. LLE weakness/ heaviness has resolved, no motor or strength deficits noted SKIN: No ulceration or induration present. - Patient Status Disposition: Home, Self-Care Condition: Good Functional capacity at discharge: independent ambulation Overall status at discharge: patient is progressing back to baseline - Discharge Instructions Follow Up With: Leah Centeno CNP [Primary Care Provider] - 03/11/18 1:30 pm NONE,PCP [Non-Partnered Physician] - - Diet and Activity Activity: increase activity as tolerated, resume usual activities as tolerated Diet: advance to your usual diet
[2018-03-05] MEDS: Aspirin 81 MG TAB.CHEW PO SCH (09:20)
--- NOTE | 2018-03-05 23:10 | Electrocardiograph Report ---
[place] [id number] Test Date: 2018-03-03 Pat Name: Donna Chirinos Department: [id number] Room: 3B34 Gender: F Staff Attorney: : [id number] Requested By: Brandi Bray Order Number: [id number] Reading MD: Masood Saldivar Measurements Intervals [place] Rate: 60 P: 66 LA: 148 QRS: -21 QRSD: 104 T: 52 QT: 441 QTc: 441 Interpretive Statements Sinus rhythm Borderline left axis deviation Electronically Signed On 03-05-2018 23:09:20 EDT by Masood Saldivar
== END 2018-03-05 11:43 | disposition home or self-care (01) ==
LOC: 3BNU 08:18 → EMEROOARM 08:18 → 3BNU 10:10
PROVIDERS: ADMIT Student in an Organized Health Care Education/Training Program; ATTEND Student in an Organized Health Care Education/Training Program